=== PATIENT | male | born 1935 | race Caucasian/White ===

== ENCOUNTER 2017-10-03 15:03 | Emergency (ER) | payer MEDICARE ==
[~2017-10-03] VITALS: Ht 177.8 cm; Wt 75.0 kg
[~2017-10-03 15:03] MED LIST: ASPIRIN ADULT L81 M1 PO; BAYER ASA325 MG PO; DOXAZOSIN1 MG PO; DOXAZOSIN4 MG PO; FISH OIL1200 M1 PO; FLOMAX0.4 M1 PO; FLOMAX0.4 MG OR; FLUARIX QUADRIV1 INJ IM; FLULAVAL IM; FLUOCINONIDE0.05 % EX; FOLIC ACID1 MG PO; FOLIC ACID800 MCG PO; LIPITOR20 MG OR; LIPITOR40 MG PO; MOBIC7.5 MG PO; MULTI 501 PO; NEXIUM40 MG PO; PLAVIX75 MG PO; PREDNISONE5 MG PO; PRILOSEC20 MG PO; PROTONIX40 M2 OR; RAPAFLO4 MG PO; TENORMIN25 MG PO; ZESTRIL10 M1 PO; ZPAK PO
[2017-10-03] MEDS ORDERED: PREDNISONE10 MG PO (16:10)
[2017-10-03] MEDS ORDERED: CARVEDILOL6.25 MG PO (16:10)
[2017-10-03] MEDS ORDERED: LISINOPRIL10 M1 PO (16:11)
[2017-10-03] MEDS ORDERED: CLOPIDOGREL75 MG PO (16:11)
[2017-10-03] MEDS ORDERED: ATORVASTATIN CA40 MG PO (16:12)
[2017-10-03] MEDS ORDERED: TAMSULOSIN HCL0.4 MG PO (16:12)
[2017-10-03] MEDS ORDERED: PANTOPRAZOLE SO20 MG PO (16:13)
[2017-10-03] MEDS ORDERED: ASPIRIN 8181 MG PO (16:14)
[2017-10-03 16:39] LABS: ANION GAP 13 (6-22 (CALC)); BUN 19 mg/dL (8-23); BUN/CREATININE RATIO 19 (12-20 (CALC)); CARBON DIOXIDE 27 mmol/l (22-30); CHLORIDE 103 mmol/l (95-108); GFR > 60 ML/MIN (>=60 (CALC)); GFR FOR AFR.AMER. > 60 ML/MIN (>=60 (CALC)); POTASSIUM 3.8 mmol/l (3.5-5.1); SODIUM 139 mmol/l (137-146)
[2017-10-03 16:46] LABS: HEMATOCRIT 41.8 % (39.0-50.0); HEMOGLOBIN 14.4 g/dl (14.0-18.0); IMMATURE GRANULOCYTES 0.6 % (0.0-1.0); MEAN CELL VOLUME 99.1 fL CALC (80.0-100.0); MEAN CORPUSCULAR HGB 34.1 pG CALC (26.0-32.0); MEAN CORPUSCULAR HGB CONC 34.4 g/L CALC (32.0-36.0); NEUT# 5.43 thou/uL (1.82-7.42); RED BLOOD COUNT 4.22 mill/uL (4.70-6.10)
[2017-10-03 17:00] VITALS: BP 110/80
[2017-10-03] MEDS ORDERED: CYCLOBENZAPRINE5 MG PO (17:01)
== END 2017-10-03 17:00 | disposition home or self-care (01) ==
LOC: ED 15:03
PROVIDERS: Family Medicine
DX: R07.89 Other chest pain (principal); M54.5 Low back pain; X50.1XXA Overexertion from prolonged static or awkward postures, initial encounter; Y92.009 Unspecified place in unspecified non-institutional (private) residence as the place of occurrence of the external cause; I25.2 Old myocardial infarction; I10 Essential (primary) hypertension

== ENCOUNTER 2018-09-04 22:28 | Emergency (ER) | payer MEDICARE ==
[~2018-09-04] VITALS: Ht 177.8 cm; Wt 76.0 kg
[~2018-09-04 22:28] MED LIST changes: +ASPIRIN 8181 MG PO; +ATORVASTATIN CA40 MG PO; +CARVEDILOL6.25 MG PO; +CLOPIDOGREL75 MG PO; +CYCLOBENZAPRINE5 MG PO; +LISINOPRIL10 M1 PO; +PANTOPRAZOLE SO20 MG PO; +PREDNISONE10 MG PO; +TAMSULOSIN HCL0.4 MG PO
[2018-09-04 23:17] LABS: HEMATOCRIT 28.4 % (39.0-50.0); IMMATURE GRANULOCYTES 1.1 % (0.0-5.0); MEAN CORPUSCULAR HGB 34.8 pG CALC (26.0-32.0); MEAN CORPUSCULAR HGB CONC 35.2 g/L CALC (32.0-36.0); NEUT# 7.69 thou/uL (1.82-7.42); RED BLOOD COUNT 2.87 mill/uL (4.70-6.10); RED CELL DISTRI WIDTH 13.3 % (11.5-15.5)
[2018-09-04 23:29] LABS: ALBUMIN 2.7 g/dL (3.2-5.0); ALKALINE PHOSPHATASE 37 u/l (38-126); ANION GAP 10 (6-22 (CALC)); BILIRUBIN, TOTAL 0.3 mg/dL (0.0-1.4); BUN 35 mg/dL (8-23); BUN/CREATININE RATIO 39 (12-20 (CALC)); CARBON DIOXIDE 25 mmol/l (22-30); CHLORIDE 99 mmol/l (95-108); CREATININE 0.9 mg/dL (0.7-1.3); GFR > 60 ML/MIN (>=60 (CALC)); GFR FOR AFR.AMER. > 60 ML/MIN (>=60 (CALC)); POTASSIUM 3.9 mmol/l (3.5-5.1); SGOT/AST 29 u/l (19-48); TOTAL PROTEIN 4.8 g/dL (6.3-8.2)
[2018-09-04 23:35] LABS: ACT PARTIAL THROMBO TIME 19.8 SECONDS (20.0-32.5); PROTHROMBIN TIME 10.2 SECONDS (9.0-12.5)
[2018-09-04 23:36] LABS: SODIUM 130 mmol/l (137-146)
[2018-09-04 23:41] LABS: MYOGLOBIN 55 ng/mL (0 - 121)
[2018-09-05 00:29] LABS: URINE BILIRUBIN - DIPSTICK NEGATIVE (NEGATIVE); URINE BLOOD DIPSTICK NEGATIVE (NEGATIVE); URINE COLOR YELLOW; URINE GLUCOSE - DIPSTICK NEGATIVE (NEGATIVE); URINE KETONE NEGATIVE (NEGATIVE); URINE LEUK ESTERASE NEGATIVE (NEGATIVE); URINE NITRITE - DIPSTICK NEGATIVE (Negative); URINE PH 5.5 (4.5-8.0); URINE PROTEIN - DIPSTICK NEGATIVE (NEG-TRACE); URINE UROBILINOGEN - DIPSTICK 0.2 E.U./dL (0.2)
[2018-09-05 01:35] VITALS: BP 134/72
== END 2018-09-05 01:40 | disposition short-term general hospital (02) ==
LOC: ED 22:28
PROVIDERS: Family Medicine
DX: K92.2 Gastrointestinal hemorrhage, unspecified (principal); K92.1 Melena; R53.1 Weakness; R19.7 Diarrhea, unspecified; R10.32 Left lower quadrant pain; I10 Essential (primary) hypertension; I49.9 Cardiac arrhythmia, unspecified; M35.3 Polymyalgia rheumatica; K21.9 Gastro-esophageal reflux disease without esophagitis; I25.2 Old myocardial infarction; Z95.5 Presence of coronary angioplasty implant and graft
CPT/HCPCS: S0164

== ENCOUNTER → 2018-10-02 | Outpatient (REF) | payer MEDICARE ==
[2018-10-02 08:00] LABS: HEMATOCRIT 34.8 % (39.0-50.0); HEMOGLOBIN 11.1 g/dl (14.0-18.0); MEAN CELL VOLUME 98.9 fL CALC (80.0-100.0); MEAN CORPUSCULAR HGB 31.5 pG CALC (26.0-32.0); MEAN CORPUSCULAR HGB CONC 31.9 g/L CALC (32.0-36.0); RED BLOOD COUNT 3.52 mill/uL (4.70-6.10); RED CELL DISTRI WIDTH 15.3 % (11.5-15.5)
[2018-10-02 08:43] LABS: ALKALINE PHOSPHATASE 54 u/l (38-126); BILIRUBIN, TOTAL 0.4 mg/dL (0.0-1.4); BUN 18 mg/dL (8-23); BUN/CREATININE RATIO 22 (12-20 (CALC)); C-REACTIVE PROTEIN 0.5 mg/dL (0-0.9); CALCULATED LDLCHOLESTEROL 69 mg/dL (62-129 (CALC)); CARBON DIOXIDE 31 mmol/l (22-30); CHLORIDE 102 mmol/l (95-108); CREATININE 0.8 mg/dL (0.7-1.3); GFR > 60 ML/MIN (>=60 (CALC)); GFR FOR AFR.AMER. > 60 ML/MIN (>=60 (CALC)); HDL CHOLESTEROL 87 mg/dL (>=40); POTASSIUM 4.2 mmol/l (3.5-5.1); SGOT/AST 27 u/l (19-48); TOTAL CHOLESTEROL 174 mg/dl (0-199); TOTAL PROTEIN 5.4 g/dL (6.3-8.2); TOTAL TRIGLYCERIDES 88 mg/dl (30-149); VLDL CHOLESTROL 18 mg/dl (0-38 (CALC))
[2018-10-02 08:47] LABS: ALBUMIN 3.3 g/dL (3.2-5.0); ANION GAP 9 (6-22 (CALC)); SODIUM 138 mmol/l (137-146)
[2018-10-02 09:05] LABS: TSH, 3RD GENERATION 0.61 uIU/mL (0.47 - 4.68)
== END | disposition home or self-care (01) ==
LOC: LAB 06:59
PROVIDERS: Nurse Practitioner; ATTEND Internal Medicine
DX: I10 Essential (primary) hypertension (principal); M35.3 Polymyalgia rheumatica; K92.1 Melena

== ENCOUNTER → 2018-10-28 | Outpatient (REF) | payer MEDICARE ==
[2018-10-28 08:13] LABS: IMMATURE GRANULOCYTES 0.7 % (0.0-5.0); MEAN CELL VOLUME 98.8 fL CALC (80.0-100.0); MEAN CORPUSCULAR HGB 31.7 pG CALC (26.0-32.0); MEAN CORPUSCULAR HGB CONC 32.1 g/L CALC (32.0-36.0); NEUT# 6.56 thou/uL (1.82-7.42); RED BLOOD COUNT 4.26 mill/uL (4.70-6.10); RED CELL DISTRI WIDTH 15.9 % (11.5-15.5)
[2018-10-28 08:22] LABS: HEMATOCRIT 42.1 % (39.0-50.0); HEMOGLOBIN 13.5 g/dl (14.0-18.0)
== END | disposition home or self-care (01) ==
LOC: LAB 07:54
DX: D50.9 Iron deficiency anemia, unspecified (principal); K92.2 Gastrointestinal hemorrhage, unspecified; Z79.01 Long term (current) use of anticoagulants; Z03.89 Encounter for observation for other suspected diseases and conditions ruled out

== ENCOUNTER 2018-11-17 20:48 | Emergency (ER) | payer MEDICARE ==
[~2018-11-17] VITALS: Ht 177.8 cm; Wt 75.0 kg
[2018-11-17 21:20] LABS: HEMATOCRIT 39.6 % (39.0-50.0); HEMOGLOBIN 13.2 g/dl (14.0-18.0); IMMATURE GRANULOCYTES 1.3 % (0.0-5.0); MEAN CORPUSCULAR HGB 31.7 pG CALC (26.0-32.0); MEAN CORPUSCULAR HGB CONC 33.3 g/L CALC (32.0-36.0); NEUT# 7.7 thou/uL (1.82-7.42); RED BLOOD COUNT 4.17 mill/uL (4.70-6.10); RED CELL DISTRI WIDTH 15.3 % (11.5-15.5)
[2018-11-17 21:42] LABS: ALBUMIN 3.1 g/dL (3.2-5.0); ALKALINE PHOSPHATASE 62 u/l (38-126); ANION GAP 13 (6-22 (CALC)); BILIRUBIN, TOTAL 0.4 mg/dL (0.0-1.4); BUN 18 mg/dL (8-23); BUN/CREATININE RATIO 21 (12-20 (CALC)); CARBON DIOXIDE 25 mmol/l (22-30); CHLORIDE 99 mmol/l (95-108); CREATININE 0.9 mg/dL (0.7-1.3); GFR > 60 ML/MIN (>=60 (CALC)); GFR FOR AFR.AMER. > 60 ML/MIN (>=60 (CALC)); POTASSIUM 4.4 mmol/l (3.5-5.1); SGOT/AST 38 u/l (19-48); SODIUM 132 mmol/l (137-146); TOTAL PROTEIN 5.6 g/dL (6.3-8.2)
[2018-11-17 21:53] LABS: MYOGLOBIN 110 ng/mL (0 - 121)
[2018-11-17 22:57] VITALS: BP 158/87
== END 2018-11-17 22:58 | disposition home or self-care (01) ==
LOC: ED 20:48
PROVIDERS: Family Medicine
DX: F41.9 Anxiety disorder, unspecified (principal); I10 Essential (primary) hypertension; I25.2 Old myocardial infarction; Z95.810 Presence of automatic (implantable) cardiac defibrillator; R06.02 Shortness of breath